=== PATIENT | male | born 1990 | race Caucasian/White ===

== ENCOUNTER 2017-02-14 23:12 | Emergency (ER) | payer MEDICAID ==
[~2017-02-14] VITALS: Ht 177.8 cm; Wt 114.4 kg
[2017-02-15 01:30] VITALS: BP 121/77
== END 2017-02-15 01:41 | disposition left against medical advice (07) ==
LOC: ER 23:12
DX: Z53.21 Procedure and treatment not carried out due to patient leaving prior to being seen by health care provider (principal)

== ENCOUNTER 2017-12-20 11:19 | Emergency (ER) | payer MEDICAID ==
[~2017-12-20] VITALS: Ht 165.1 cm; Wt 100.0 kg
[2017-12-20] MEDS ORDERED: CLIN150C14 PO (11:42)
[2017-12-20] MEDS ORDERED: KETOROLAC 60MG/2ML VIAL IM ONE (16:00)
[2017-12-20 16:44] VITALS: BP 124/78
== END 2017-12-20 16:49 | disposition home or self-care (01) ==
LOC: ER 13:11
DX: M79.1 Myalgia (principal); F17.210 Nicotine dependence, cigarettes, uncomplicated
CPT/HCPCS: 96372; 99283; J1885; Z7610

== ENCOUNTER 2018-04-13 10:30 | Emergency (ER) | payer MEDICAID ==
[~2018-04-13] VITALS: Ht 175.3 cm; Wt 91.0 kg
[~2018-04-13 10:30] MED LIST: CLIN150C14 PO
[2018-04-13] MEDS ORDERED: ONDANSETRON HCL 4MG/2ML VIAL IV ONE (12:30)
[2018-04-13] MEDS ORDERED: SODIUM CHLORIDE 0.9% 1,000 ML IV ONE (12:30)
[2018-04-13 12:54] LABS: BASOPHILS % 0.4 % (0.0-2.0); EOSINOPHILS % 3.2 % (0.0-5.0); HEMATOCRIT. 44.6 % (42.0-52.0); HEMOGLOBIN. 15.5 g/dL (14.0-18.0); LYMPHOCYTES % 33.9 % (20.0-50.0); MEAN CORPUSCULAR HEMOGLOBIN 30.3 pg (28.0-32.0); MEAN CORPUSCULAR VOLUME 87.1 fL (80.0-94.0); MONOCYTES % 14.4 % (2.0-8.0); NEUTROPHILS % 48.1 % (40.0-76.0); PLATELET 216 x1000/uL (130-400); RED BLOOD CELL COUNT 5.12 mill/uL (4.7-6.1); RED CELL DISTRIBUTION WIDTH 12.9 % (11.6-14.6)
[2018-04-13 12:59] LABS: CHLORIDE 107 mEq/L (98-107)
[2018-04-13 13:01] LABS: INR 1.1
[2018-04-13 13:08] LABS: CLARITY URINE CLEAR (CLEAR); COLOR URINE DARK YELLOW (YELLOW); KETONES URINE TRACE (NEGATIVE); LEUKOCYTE ESTERASE URINE NEGATIVE (NEGATIVE); NITRITE URINE NEGATIVE (NEGATIVE); OCCULT BLOOD URINE NEGATIVE (NEGATIVE); PROTEIN URINE TRACE (NEGATIVE); SPECIFIC GRAVITY URINE 1.032 (1.005-1.030); UROBILINOGEN URINE 0.2 E.U./dL (0.2-1.0)
[2018-04-13 15:13] VITALS: BP 120/88
== END 2018-04-13 15:15 | disposition home or self-care (01) ==
LOC: ER 11:33
DX: K52.9 Noninfective gastroenteritis and colitis, unspecified (principal)
CPT/HCPCS: 36415; 80053; 81003; 83690; 85025; 85610; 99284; J7030

== ENCOUNTER 2018-05-28 10:45 | Emergency (ER) | payer MEDICAID ==
[~2018-05-28] VITALS: Ht 175.3 cm; Wt 119.2 kg
[2018-05-28 11:26] LABS: BASOPHILS % 0.7 % (0.0-2.0); EOSINOPHILS % 2.7 % (0.0-5.0); HEMOGLOBIN. 14.6 g/dL (14.0-18.0); LYMPHOCYTES % 42.7 % (20.0-50.0); MEAN CORPUSCULAR HEMOGLOBIN 30.1 pg (28.0-32.0); MEAN CORPUSCULAR VOLUME 86.5 fL (80.0-94.0); MEAN PLATELET VOLUME 8.9 fl (7.4-10.4); MONOCYTES % 8.3 % (2.0-8.0); NEUTROPHILS % 45.6 % (40.0-76.0); PLATELET 242 x1000/uL (130-400); RED BLOOD CELL COUNT 4.86 mill/uL (4.7-6.1)
[2018-05-28 11:27] LABS: CHLORIDE 106 mEq/L (98-107)
[2018-05-28] MEDS ORDERED: FAMOTIDINE 20MG/2ML VIAL IV ONE (11:30)
[2018-05-28] MEDS ORDERED: KETOROLAC 30MG/ML VIAL IV ONE (11:30)
[2018-05-28] MEDS ORDERED: MAGNESIUM/ALUMINUM HYDROXIDE/SIMETHICONE 30ML UDC PO ONE (11:30)
[2018-05-28 11:32] LABS: D-DIMER 0.31 mg/L FEU (<0.50); ETHANOL BLOOD < 10 mg/dL; PARTIAL THROMBOPLASTIN TIME 25.5 sec (23.4-31.0); PROTHROMBIN TIME 10.7 sec (9.4-11.6)
[2018-05-28 11:38] LABS: CLARITY URINE CLEAR (CLEAR); COLOR URINE YELLOW (YELLOW); KETONES URINE NEGATIVE (NEGATIVE); LEUKOCYTE ESTERASE URINE NEGATIVE (NEGATIVE); NITRITE URINE NEGATIVE (NEGATIVE); OCCULT BLOOD URINE NEGATIVE (NEGATIVE); PH URINE 5.5 (4.5-8.0); PROTEIN URINE NEGATIVE (NEGATIVE); SPECIFIC GRAVITY URINE 1.029 (1.005-1.030)
[2018-05-28 11:59] LABS: *BARBITURATES SCREEN URINE NEGATIVE (NEGATIVE); *BENZODIAZEPINES SCREEN URINE NEGATIVE (NEGATIVE); *COCAINE SCREEN URINE NEGATIVE (NEGATIVE); OPIATES URINE SCREEN NEGATIVE (NEGATIVE); PHENCYCLIDINE URINE SCREEN NEGATIVE (NEGATIVE)
[2018-05-28 12:00] LABS: *AMPHETAMINES SCREEN URINE NEGATIVE (NEGATIVE); CANNABINOID URINE SCREEN NEGATIVE (NEGATIVE)
[2018-05-28 12:14] LABS: METHADONE URINE SCREEN NEGATIVE (NEGATIVE)
[2018-05-28 14:26] VITALS: BP 128/88
== END 2018-05-28 15:00 | disposition home or self-care (01) ==
LOC: ER 11:42
DX: R07.89 Other chest pain (principal); K21.9 Gastro-esophageal reflux disease without esophagitis; F17.210 Nicotine dependence, cigarettes, uncomplicated; E66.9 Obesity, unspecified; R94.31 Abnormal electrocardiogram [ECG] [EKG]; Z90.79 Acquired absence of other genital organ(s); Z68.38 Body mass index [BMI] 38.0-38.9, adult; Z71.6 Tobacco abuse counseling
CPT/HCPCS: 36415; 71045; 80053; 80305; 81003; 83690; 83880; 84443; 84484; 85025; 85379; 85610; 85730; 93005; 96374; 96375; 99285; G0482; J1885; J3490; Z7610

== ENCOUNTER 2018-07-12 20:12 | Emergency (ER) | payer MEDICAID ==
[~2018-07-12] VITALS: Ht 180.3 cm; Wt 119.6 kg
[2018-07-12 20:26] VITALS: BP 168/102
== END 2018-07-12 23:50 | disposition left against medical advice (07) ==
LOC: ER 20:12
DX: R10.9 Unspecified abdominal pain (principal); R07.0 Pain in throat; Z53.21 Procedure and treatment not carried out due to patient leaving prior to being seen by health care provider

== ENCOUNTER 2018-09-11 07:53 | Emergency (ER) | payer MEDICAID | END 2018-09-11 10:00 | disposition left against medical advice (07) | LOC: ER 07:53 | DX: R50.9 Fever, unspecified (principal); Z53.21 Procedure and treatment not carried out due to patient leaving prior to being seen by health care provider ==

== ENCOUNTER → 2019-06-18 | Emergency (ER) | payer MEDICAID | END | disposition left against medical advice (07) | LOC: ER 08:20 | DX: Z53.21 Procedure and treatment not carried out due to patient leaving prior to being seen by health care provider (principal) ==

== ENCOUNTER 2019-10-30 05:11 | Emergency (ER) | payer MEDICAID ==
[~2019-10-30] VITALS: Ht 182.9 cm; Wt 102.0 kg
[2019-10-30] MEDS ORDERED: IBUPROFEN 600MG TABLET PO ONE (06:30)
[2019-10-30 07:02] VITALS: BP 124/74
== END 2019-10-30 07:04 | disposition home or self-care (01) ==
LOC: ER 05:11
DX: H60.91 Unspecified otitis externa, right ear (principal)
CPT/HCPCS: 99283

== ENCOUNTER 2021-09-22 01:19 | Emergency (ER) | payer MEDICAID ==
[~2021-09-22] VITALS: Ht 182.9 cm; Wt 130.0 kg
[~2021-09-22 01:19] MED LIST changes: +CLIN-116 PO; -CLIN150C14 PO
[2021-09-22] MEDS ORDERED: VISCOUS LIDOCAINE 2% 15 ML UDC PO STA (02:09)
[2021-09-22] MEDS ORDERED: MAGNESIUM/ALUMINUM HYDROXIDE/SIMETHICONE 30ML UDC PO STA (02:09)
[2021-09-22] MEDS ORDERED: FAMOTIDINE 20MG TABLET PO ONE (02:15)
[2021-09-22 02:38] LABS: BASOPHILS % 0.9 % (0.0-2.0); EOSINOPHILS % 3.1 % (0.0-5.0); HEMATOCRIT. 40.9 % (42.0-52.0); HEMOGLOBIN. 13.9 g/dL (14.0-18.0); LYMPHOCYTES % 44.7 % (20.0-50.0); MEAN CORPUSCULAR HEMOGLOBIN 29.9 pg (28.0-32.0); MEAN CORPUSCULAR VOLUME 87.8 fL (80.0-94.0); MEAN PLATELET VOLUME 9.4 fl (7.4-10.4); MONOCYTES % 10.7 % (2.0-8.0); NEUTROPHILS % 40.6 % (40.0-76.0); PLATELET 229 x1000/uL (130-400); RED BLOOD CELL COUNT 4.65 mill/uL (4.7-6.1); RED CELL DISTRIBUTION WIDTH 12.9 % (11.6-14.6)
[2021-09-22 02:43] LABS: CHLORIDE 108 mEq/L (98-107)
[2021-09-22 02:52] LABS: CLARITY URINE CLEAR (CLEAR); COLOR URINE YELLOW (YELLOW); KETONES URINE TRACE (NEGATIVE); LEUKOCYTE ESTERASE URINE NEGATIVE (NEGATIVE); NITRITE URINE NEGATIVE (NEGATIVE); OCCULT BLOOD URINE NEGATIVE (NEGATIVE); PROTEIN URINE NEGATIVE (NEGATIVE); SPECIFIC GRAVITY URINE 1.025 (1.005-1.030); UROBILINOGEN URINE 0.2 E.U./dL (0.2-1.0)
[2021-09-22 04:30] VITALS: BP 125/66
[2021-09-22] MEDS ORDERED: MAG-55 MT (04:33)
== END 2021-09-22 05:08 | disposition home or self-care (01) ==
LOC: ER 01:19
DX: K29.70 Gastritis, unspecified, without bleeding (principal); I10 Essential (primary) hypertension
CPT/HCPCS: 36415; 71045; 80053; 81003; 85025; 99284

== ENCOUNTER 2023-10-17 09:42 | Emergency (ER) | payer MEDICAID ==
[~2023-10-17] VITALS: Ht 180.3 cm; Wt 117.0 kg
[~2023-10-17 09:42] MED LIST changes: +MAG-55 MT
[2023-10-17 09:50] VITALS: BP 148/79; PULSE 65; RESP 20; TEMP 98.3; O2SAT 97
[2023-10-17] MEDS ORDERED: OCUFLX RIGHTEYE (10:39)
== END 2023-10-17 10:55 | disposition home or self-care (01) ==
LOC: ER 09:51
DX: H10.9 Unspecified conjunctivitis (principal)
CPT/HCPCS: 99283

== ENCOUNTER 2024-03-11 09:06 | Emergency (ER) | payer MEDICAID ==
[~2024-03-11 09:06] MED LIST changes: +OCUFLX RIGHTEYE
[2024-03-11 09:13] VITALS: PULSE 82; RESP 16
== END 2024-03-11 10:00 | disposition left against medical advice (07) ==
LOC: ER 09:21
DX: H53.142 Visual discomfort, left eye (principal); Z53.21 Procedure and treatment not carried out due to patient leaving prior to being seen by health care provider
CPT/HCPCS: 99281